=== PATIENT | female | born 1975 | race Caucasian/White ===

== ENCOUNTER 2017-05-25 15:15 | Emergency (ER) | payer BC ==
[2017-05-25 15:26] VITALS: O2SAT 100
--- NOTE | 2017-05-25 15:38 | CPEKG ---
Heart Rate: 59 RR Interval: 1017 P-R Interval: 117 QRSD Interval: 86 QT Interval: 416 QTC Interval: 413 P Kountze: 24 QRS Kountze: 80 T Wave Kountze: 68 EKG Severity - NORMAL ECG - EKG Impression: SINUS RHYTHM Electronically Signed By: Jaymie Infante 25-May-2017 23:18:23
[2017-05-25] MEDS ORDERED: ASPIRIN 81 MG CHEWABLE TAB PO ONE (16:05)
--- NOTE | 2017-05-25 16:05 | EDPHY ---
H & P Stated Complaint: CP x 1 hr Time Seen by Provider: 05/25/17 15:45 HPI/ROS: CHIEF COMPLAINT: Left-sided chest pain x1 hour HISTORY OF PRESENT ILLNESS: 42-year-old female with medical history significant for metastatic melanoma in 2009, ever since cleared peer patient arrives via private vehicle stating that when she was seated in the car approximately 2:20 p.m. she had at development of left-sided dull chest ache pain without radiation. Lasted approximately 1 hour. She was not performing any physically exertional activities at that time. She is currently asymptomatic. No radiation of symptoms. No back or flank pain. No jaw pain. No nausea or vomiting. No diaphoresis. No syncope. No history of coagulopathy , no complaints of recent URI symptoms. The patient loss exercise yesterday complaining 20 minutes of cardiovascular activity and did not need to cease activity prematurely, did not experience chest pain or dyspnea exertion beyond that which is expected with exercise. REVIEW OF SYSTEMS: A ten point review of systems was performed and is negative with the exception of the items mentioned in the HPI PAST MEDICAL & SURGICAL HISTORY: Metastatic melanoma 2009 SOCIAL HISTORY:. Nonsmoker. No cocaine use. PHYSICAL EXAM (Prior to examination, patient consented to physical exam, hands were washed and my usual and customary physical exam procedures followed) 1) GENERAL: Well-developed, well-nourished, alert and oriented. Appears to be in no acute distress. 2) HEAD: Normocephalic, atraumatic 3) HEENT: Pupils equal, round, reactive to light bilaterally. Sclera anicteric. 4) NECK: Full range of motion, no meningeal signs. No carotid bruit 5) LUNGS: Clear auscultation bilaterally, no wheezes, no rhonchi, no retractions. 6) HEART: Regular rate and rhythm, no murmur, no heave, no gallop. 7) ABDOMEN: No guarding, no rebound, no focal tenderness, 8) MUSCULOSKELETAL: Moving all extremities, no focal areas of tenderness, no obvious trauma. No peripheral edema or discoloration. Negative Homans no palpable cord 9) BACK: no obvious trauma, no visual or palpable abnormality. 10) SKIN: No rash, no petechiae. 11) Psychiatric: Patient is oriented X 3, there is no agitation. DIFFERENTIAL DIAGNOSIS: In no particular order, including but not limited to myocardial ischemia, pulmonary embolus, chest wall pain, pleural inflammation and pulmonary infectious causes. - Personal History LMP (Females 10-55): 1-7 Days Ago Current Tetanus/Diphtheria Vaccine: Unsure Current Tetanus Diphtheria and Acellular Pertussis (TDAP): Unsure - Medical/Surgical History Hx Asthma: No Hx Chronic Respiratory Disease: No Hx Diabetes: No Hx Cardiac Disease: No Hx Renal Disease: No Hx Cirrhosis: No Hx Alcoholism: No Hx HIV/AIDS: No Hx Splenectomy or Spleen Trauma: No Other PMH: mitral valve regurgitation - Social History Smoking Status: Never smoked Constitutional: Initial Vital Signs Temperature (C) 36.5 C 05/25/17 15:23 Heart Rate 62 05/25/17 15:23 Respiratory Rate 16 05/25/17 15:23 Blood Pressure 90/60 L 05/25/17 15:23 O2 Sat (%) 100 05/25/17 15:23 O2 Delivery Mode Room Air Allergies/Adverse Reactions: METAL Allergy (Mild, Uncoded 10/30/09 16:21) Rash Home Medications: Medication Instructions Recorded Multivitamins [Multivitamin (*)] 1 tab PO DAILY 05/25/17 Medical Decision Making ED Course/Re-evaluation: 4:04 p.m.: Patient declines chest x-ray at this time stating that she agrees to EKG and laboratory studies only, concerned about radiation exposure. I informed her that I was being E obtaining a D-dimer and if this were positive would more than likely be recommending CT imaging and discussed the radiation exposure with that. She states that she is agreeable to CT if indicated. 5:09 p.m.: Patient re-evaluated with serial examinations. Discussed her laboratory studies including negative troponin, negative D-dimer. Iron discussed the limitations of the troponin individual with chest pain which occurred 1 hour prior to presentation, now resolved. Given her history of recent cardiovascular exercises recently as yesterday with no complaints of chest pain or dyspnea with exertion or chest pain with exertion, I think that cardiac etiology is less than likely at this time, however this cannot be fully ruled out. I discussed with her my medical recommendation to obtain a chest x- ray which he continues to decline at this point. I recommended further evaluation from the emergency department which he declines stating that she would like to be discharged. I explained to her that she would be leaving against medical advice. Explained to her that i my professional opinion, I think she necessitates further evaluation. By leaving AGAINST MEDICAL ADVICE she has verbalized understanding and acceptance of the risks of leaving AGAINST MEDICAL ADVICE, including, but not limited to, , permanent and chronic disability, permanent and chronic loss of income, and other situations and circumstances too numerous to mention herein. Her was present in the room during this conversation. Informed her that I am not mad at her and that I would welcome the opportunity to re-evaluate her at any point. I think she has the capacity to fully understand these risks. I have offered ample opportunity to answer questions. I have offered to speak with family and/or friends regarding this issue as well. Patient has been informed that they are welcome to return to emergency department at any point for reevaluation. - Data Points Laboratory Results: Laboratory Results 05/25/17 16:00 05/25/17 16:00 Medications Given: Discontinued Medications Aspirin (Aspirin) 324 mg PO EDNOW ONE Stop: 05/25/17 16:06 Last Admin: 05/25/17 16:13 Dose: 324 mg Departure - Departure Disposition: Against Medical Advice Clinical Impression: Chest pain Qualifiers: Chest pain type: unspecified Qualified Code(s): R07.9 - Chest pain, unspecified Condition: Good Instructions: Chest Pain (ED) Additional Instructions: Seek medical attention if you develop new or worsening chest pain, if you develop new or worsening shortness of breath, or any other symptoms that concern you. I have explained you that in my medical opinion you necessitate further evaluation. You have declined this. By doing so you have been explained and have verbalized understanding of the risks of doing so including, but not limited to, , permanent and chronic disability, need for long-term care. You are more than welcome to return to emergency department any time for re- evaluation Referrals: NONE *PRIMARY CARE P,. [Primary Care Provider] - 1-2 days without fail
[2017-05-25 16:20] LABS: % IMMATURE GRANULYOCYTES 0.3 % (0.0-1.1); ABSOLUTE IMMATURE GRANULOCYTES 0.02 10^3/uL (0.00-0.10); ADD DIFF? NO; ADD MORPH? NO; ADD SCAN? NO; ATYPICAL LYMPHOCYTE FLAG 10 (0-99); FRAGMENT RBC FLAG 0 (0-99); HEMATOCRIT 37.5 % (38.0-47.0); HEMOGLOBIN 13.1 g/dL (12.6-16.3); LEFT SHIFT FLG 0 (0-99); LIPEMIA HEMOLYSIS FLAG 90 (0-99); MEAN CELL HEMOGLOBIN 33.4 pg (27.9-34.1); MEAN CELL HEMOGLOBIN CONCENTR. 34.9 g/dL (32.4-36.7); MEAN CELL VOLUME 95.7 fL (81.5-99.8); MEAN PLATELET VOLUME 8.8 fL (8.7-11.7); PLATELET CLUMPS FLAG 10 (0-99); PLATELET COUNT 295 10^3/uL (150-400); RED BLOOD CELL COUNT 3.92 10^6/uL (4.18-5.33); RED CELL DISTRIBUTION WIDTH 12.9 % (11.5-15.2)
[2017-05-25 16:29] LABS: ANION GAP 11 mEq/L (8-16); CARBON DIOXIDE 26 mEq/l (22-31); CHLORIDE 101 mEq/L (97-110); CREATININE 0.7 mg/dL (0.6-1.0); GLOMERULAR FILTRATION RATE > 60; GLUCOSE 79 mg/dL (70-100); POTASSIUM 3.8 mEq/L (3.5-5.2); SODIUM 138 mEq/L (134-144)
[2017-05-25 16:40] LABS: TROPONIN I < 0.012 ng/mL (0.000-0.034)
[2017-05-25 17:42] VITALS: BP 104/66; PULSE 69; RESP 18; TEMP 98.2
== END 2017-05-25 17:42 | disposition left against medical advice (07) ==
DX: R07.9 Chest pain, unspecified (principal)

== ENCOUNTER 2019-01-01 18:22 | Emergency (ER) | payer BC | END 2019-01-01 19:18 | disposition home or self-care (01) ==